=== PATIENT | female | born 1995 | race Caucasian/White ===

== ENCOUNTER 2016-09-25 20:37 | Emergency (ER) | payer BC, OTHER ==
[~2016-09-25] VITALS: Ht 160 cm; Wt 46.9 kg
[2016-09-25] MEDS ORDERED: SODIUM CHLORIDE 0.9% 1,000ML IVBOLUS ONE (21:00)
[2016-09-25 21:37] LABS: BLOOD UREA NITROGEN 15 mg/dL (7-18)
[2016-09-25] MEDS ORDERED: OMNIPAQUE 350 MG/ML, 75ML BOTTLE ONE (22:00)
[2016-09-25] MEDS ORDERED: GADOBUTROL 7.5 MMOL/7.5 ML PFS ONE (23:30)
[2016-09-26 01:09] VITALS: BP 121/79
== END 2016-09-26 02:08 | disposition home or self-care (01) ==
LOC: ED 22:10
DX: S04.10XA Injury of oculomotor nerve, unspecified side, initial encounter (principal); X58.XXXA Exposure to other specified factors, initial encounter; Y93.89 Activity, other specified; Y99.8 Other external cause status; Y92.009 Unspecified place in unspecified non-institutional (private) residence as the place of occurrence of the external cause
CPT/HCPCS: 36415; 70450; 70481; 70543; 70553; 80048; 84703; 85025; 99285; A9585; Q9967